=== PATIENT | female | born 1970 | race Caucasian/White ===

== ENCOUNTER 2019-06-02 15:16 | Emergency (ER) | payer BC, MEDICAID ==
--- NOTE | 2019-06-02 15:56 | EDM.PDOC ---
ED HPI GENERAL MEDICAL PROBLEM - General Chief Complaint: Chest Pain Stated Complaint: CHEST PAIN, NECK, TO THE SHOULDERS Time Seen by Provider: 06/02/19 15:55 Source of Information: Reports: Patient, RN, RN Notes Reviewed History Limitations: Reports: No Limitations - History of Present Illness INITIAL COMMENTS - FREE TEXT/NARRATIVE: Patient presents to ER with complaint of an excruciating chest pain that occurred about 11:00 this morning. The pain radiated up into the chest, into the neck and the shoulders. Patient states she rates the pain a 7-8/10 at the time of the pain. At the time the pain began patient was sitting at rest. Patient states she had had a granola bar and coffee for breakfast. Patient states the pain eventually subsided. She states she was able to eat lunch. Patient states she did talk to her primary care provider who told her to come to the ER. Patient states she is pain-free at this time. Patient is a smoker, denies any past cardiac history. Patient states her mother has atrial fib and CHF. Patient denies any recent strenuous activity, lifting, overexertion. Left Shoulder Pain Score (Numeric/FACES): 2 - Related Data Allergies Allergy/AdvReac Type Severity Reaction Status Date / Time morphine Allergy Itching Verified 06/02/19 15:29 tape Allergy Other Uncoded 06/02/19 15:29 Home Meds: Home Meds Black Cohosh Root [Menopause Support] 20 mg PO DAILY 06/02/19 [History] Magnesium 200 mg PO QID 06/02/19 [History] Past Medical History HEENT History: Reports: Impaired Vision Other HEENT History: wears glasses Cardiovascular History: Reports: None Respiratory History: Reports: None Genitourinary History: Reports: None EYELET ROW MARKER History: Reports: None Musculoskeletal History: Reports: None Neurological History: Reports: None Psychiatric History: Reports: None Endocrine/Metabolic History: Reports: Obesity/BMI 30+ Hematologic History: Reports: None Immunologic History: Reports: None Oncologic (Cancer) History: Reports: None Dermatologic History: Reports: None - Infectious Disease History Infectious Disease History: Reports: Chicken Pox - Past Surgical History Head Surgeries/Procedures: Reports: None HEENT Surgical History: Reports: Adenoidectomy, Myringotomy w Tube(s), Tonsillectomy GI Surgical History: Reports: Appendectomy, Cholecystectomy Female Surgical History: Reports: Section Other Female Surgeries/Procedures: x 4 Social & Family History - Tobacco Use Smoking Status *Q: Current Every Day Smoker Years of Tobacco use: 20 Packs/Tins Daily: 0.5 Second Hand Smoke Exposure: No - Caffeine Use Caffeine Use: Reports: Coffee - Recreational Drug Use Recreational Drug Use: No ED ROS GENERAL - Review of Systems Review Of Systems: Comprehensive ROS is negative, except as noted in HPI. ED EXAM, GENERAL - Physical Exam Exam: See Below Exam Limited By: No Limitations General Appearance: Alert, WD/WN Eye Exam: Bilateral Eye: EOMI, Normal Inspection Ears: Normal External Exam, Hearing Grossly Normal Nose: Normal Inspection Throat/Mouth: Normal Inspection, Normal Voice, No Airway Compromise Head: Atraumatic, Normocephalic Neck: Normal Inspection, Supple, Non-Tender, Full Range of Motion Respiratory/Chest: No Respiratory Distress, Lungs Clear, Normal Breath Sounds, No Accessory Muscle Use, Chest Non-Tender Cardiovascular: Normal Peripheral Pulses, Regular Rate, Rhythm, No Edema, No Gallop, No JVD, No Murmur, No Rub Peripheral Pulses: 2+: Radial (L), Radial (R) GI/Abdominal: Normal Bowel Sounds, Soft, Non-Tender, No Organomegaly, No Distention, No Abnormal Bruit, No Mass (Female) Exam: Deferred Rectal (Female) Exam: Deferred Back Exam: Normal Inspection, Full Range of Motion, NT Extremities: Normal Inspection, Normal Range of Motion, Non-Tender, Normal Capillary Refill, No Pedal Edema Neurological: Alert, Oriented, CN II-XII Intact, Normal Cognition, Normal Gait, Normal Reflexes, No Motor/Sensory Deficits Psychiatric: Normal Affect, Normal Mood Skin Exam: Warm, Dry, Intact, Normal Color, No Rash Lymphatic: No Adenopathy Course - Vital Signs Last Recorded V/S: Last Vital Signs Temp 99.3 F 06/02/19 15:23 Pulse 105 H 06/02/19 15:23 Resp 16 06/02/19 15:23 BP 155/79 H 06/02/19 15:23 Pulse Ox 99 06/02/19 15:23 - Orders/Labs/Meds Orders: Active Orders 24 hr Category Date Time Status EKG 12 Lead [EKG Documentation Completion] [RC] STAT Care 06/02/19 15:44 Active Labs: Laboratory Tests 06/02/19 06/02/19 Range/Units 16:15 16:15 WBC 6.7 (5.0-10.0) 10^3/uL RBC 4.11 L (4.2-5.4) 10^6/uL Hgb 13.8 (12.0-16.0) g/dL Hct 39.8 (37.0-47.0) % MCV 96.8 (80-100) fL MCH 33.6 (27.0-34.0) pg MCHC 34.7 (33.0-35.0) g/dL Plt Count 261 (150-450) 10^3/uL Neut % (Auto) 54.4 (42.2-75.2) % Lymph % (Auto) 33.4 (20.5-50.1) % [place] % (Auto) 9.6 H (2-8) % Eos % (Auto) 2.0 (1.0-3.0) % Baso % (Auto) 0.6 (0.0-1.0) % Sodium 141 (136-145) mmol/L Potassium 4.2 (3.5-5.1) mmol/L Chloride 105 (98-107) mmol/L Carbon Dioxide 25 (21-32) mmol/L Anion Gap 15.2 H (7-13) mEq/L BUN 17 (7-18) mg/dL Creatinine 0.84 (0.55-1.02) mg/dL Est Cr Clr Drug Dosing 86.53 mL/min Estimated GFR (MDRD) > 60 BUN/Creatinine Ratio 20.2 (No establ ref range) Glucose 106 H (74-99) mg/dL Calcium 8.5 (8.5-10.1) mg/dL Total Bilirubin 0.3 (0.2-1.0) mg/dL AST 25 (15-37) U/L ALT 20 (14-59) U/L Alkaline Phosphatase 52 (46-116) U/L Troponin I < 0.017 (0.000-0.056) ng/mL Total Protein 6.8 (6.4-8.2) g/dL Albumin 3.6 (3.4-5.0) g/dL Globulin 3.2 Albumin/Globulin Ratio 1.1 - Radiology Interpretation Free Text/Narrative:: Chest xray: FINDINGS: Lungs: Unremarkable. No consolidation. Pleural space: Unremarkable. No pleural effusion. No pneumothorax. Heart/Mediastinum: Unremarkable. No cardiomegaly. Bones/joints: Unremarkable. IMPRESSION: No acute findings. Thank you for allowing us to participate in the care of your patient. Dictated and Authenticated by: Irineo Brizuela MD 06/02/2019 4:28 PM Central Time ([place] & [place]) See rad report Departure - Departure Time of Disposition: 17:21 Disposition: Home, Self-Care 01 Reason for Transfer *Q: Other Condition: Good Clinical Impression: Chest pain at rest Instructions: Nonspecific Chest Pain, Adult, [id number] Referrals: Ale Pearson MD [Primary Care Provider] - Forms: ED Department Discharge Additional Instructions: Call Dr. Pearson on Wednesday to make an appointment Return to the ER with any further pain or problems Sepsis Event Note - Evaluation Sepsis Screening Result: No Definite Risk - Focused Exam Vital Signs: Vital Signs Temp Pulse Resp BP Pulse Ox 06/02/19 15:23 99.3 F 105 H 16 155/79 H 99 Date Exam was Performed: 06/02/19 Time Exam was Performed: 17:53 - My Orders Last 24 Hours: My Active Orders 06/02/19 15:44 EKG 12 Lead [EKG Documentation Completion] [RC] STAT - Assessment/Plan Last 24 Hours: My Active Orders 06/02/19 15:44 EKG 12 Lead [EKG Documentation Completion] [RC] STAT
[2019-06-02 16:44] LABS: ANION GAP 15.2 mEq/L (7-13); CHLORIDE,CL 105 mmol/L (98-107); SODIUM,NA 141 mmol/L (136-145)
== END 2019-06-02 17:30 | disposition home or self-care (01) ==
LOC: DL.ED 15:16
DX: R07.9 Chest pain, unspecified (principal); E66.9 Obesity, unspecified; Z68.41 Body mass index [BMI] 40.0-44.9, adult; Z88.5 Allergy status to narcotic agent; F17.210 Nicotine dependence, cigarettes, uncomplicated
CPT/HCPCS: 36415; 71045; 80053; 84484; 85025; 93005; 99285-25

== ENCOUNTER 2021-01-10 19:14 | Emergency (ER) | payer BC ==
[2021-01-10] MEDS ORDERED: Acetaminophen 500 MG Tab PO ONE (19:33)
--- NOTE | 2021-01-10 19:33 | EDM.PDOC ---
ED HPI GENERAL MEDICAL PROBLEM - General Chief Complaint: Lower Extremity Injury/Pain Stated Complaint: AMBULANCE Time Seen by Provider: 01/10/21 19:20 Source of Information: Reports: Patient, RN, RN Notes Reviewed History Limitations: Reports: No Limitations - History of Present Illness INITIAL COMMENTS - FREE TEXT/NARRATIVE: Anne is a 50 y/o female with a history of left knee ligament laxity who presents to the ED via [facility] with complaints of left lateral knee pain. The patient states approximately two hours ago she was checking her left toes with her left knee flexed and her lower leg resting onto her right leg when she suddenly felt a sharp pain to her left lateral knee. She attempted to stand on her knee and noted the joint felt unstable so she has been non-weight bearing to the extremity. She notes the pain is a 4/10 when the knee is flexed at 45 degrees, however it increased to an 8/10 when she straightens the knee. She denies recent falls or injury to the joint. The patient underwent a left knee MRI one year ago which revealed left knee ligament laxity. She has taken no medications or performed any supportive cares since experiencing the pain. Left Knee Pain Score (Numeric/FACES): 5 - Related Data Allergies Allergy/AdvReac Type Severity Reaction Status Date / Time morphine Allergy Itching Verified 06/02/19 15:29 tape Allergy Other Uncoded 06/02/19 15:29 Home Meds: Home Meds Black Cohosh Root [Menopause Support] 20 mg PO DAILY 06/02/19 [History] Magnesium 200 mg PO QID 06/02/19 [History] Past Medical History HEENT History: Reports: Impaired Vision Other HEENT History: wears glasses Cardiovascular History: Reports: None Respiratory History: Reports: None Genitourinary History: Reports: None WORK FROM HOME History: Reports: None Musculoskeletal History: Reports: None Neurological History: Reports: None Psychiatric History: Reports: None Endocrine/Metabolic History: Reports: Obesity/BMI 30+ Hematologic History: Reports: None Immunologic History: Reports: None Oncologic (Cancer) History: Reports: None Dermatologic History: Reports: None - Infectious Disease History Infectious Disease History: Reports: Chicken Pox - Past Surgical History Head Surgeries/Procedures: Reports: None HEENT Surgical History: Reports: Adenoidectomy, Myringotomy w Tube(s), Tonsillectomy GI Surgical History: Reports: Appendectomy, Cholecystectomy Female Surgical History: Reports: Section Other Female Surgeries/Procedures: x 4 Social & Family History - Tobacco Use Tobacco Use Status *Q: Current Every Day Tobacco User Years of Tobacco use: 10 Packs/Tins Daily: 0.7 - Caffeine Use Caffeine Use: Reports: Coffee Review of Systems - Review of Systems Review Of Systems: Comprehensive ROS is negative, except as noted in HPI. ED EXAM, GENERAL - Physical Exam Exam: See Below Exam Limited By: No Limitations General Appearance: Alert, No Apparent Distress Eye Exam: Bilateral Eye: EOMI, PERRL (3mm) Ears: Normal External Exam, Hearing Grossly Normal Nose: Normal Inspection Throat/Mouth: Normal Inspection, Normal Oropharynx, Normal Voice, No Airway Compromise Head: Atraumatic, Normocephalic Neck: Normal Inspection, Supple, Non-Tender, Full Range of Motion Respiratory/Chest: No Respiratory Distress, Lungs Clear, Chest Non-Tender Cardiovascular: Normal Peripheral Pulses, Regular Rate, Rhythm, No Edema, No Gallop, No JVD, No Murmur, No Rub Peripheral Pulses: 2+: Radial (L), Radial (R) GI/Abdominal: Normal Bowel Sounds, Soft, Non-Tender, No Distention, No Abnormal Bruit, No Mass, Pelvis Stable (Female) Exam: Deferred Rectal (Female) Exam: Deferred Back Exam: Normal Inspection, Full Range of Motion Extremities: Normal Capillary Refill, Leg Pain (To left lateral knee, increased with extension of the joint), Limited Range of Motion. No: Joint Swelling, Increased Warmth, Mottled, Pallor, Redness Neurological: Alert, Oriented, CN II-XII Intact, Normal Cognition, No Motor/Sensory Deficits, Abnormal Gait (Nonweight bearing to left lower extremity). No: Normal Gait Psychiatric: Normal Affect, Normal Mood Skin Exam: Warm, Dry, Intact, Normal Color, No Rash. No: Cyanosis, Jaundice, Mottled, Pallor Lymphatic: No Adenopathy Course - Vital Signs Last Recorded V/S: Last Vital Signs Temp 98.5 F 01/10/21 20:30 Pulse 98 01/10/21 20:30 Resp 20 01/10/21 20:30 BP 139/82 01/10/21 20:30 Pulse Ox 98 01/10/21 20:30 - Orders/Labs/Meds Orders: Active Orders 24 hr Category Date Time Status DME for Discharge [COMM] Stat Oth 01/10/21 19:46 Ordered Meds: Medications Discontinued Medications Generic Name Dose Route Start Last Admin Trade Name Anastacio PRN Reason Stop Dose Admin Acetaminophen 1,000 mg 01/10/21 19:33 01/10/21 19:40 Acetaminophen 500 Mg Tab PO 01/10/21 19:34 1,000 mg ONETIME ONE Administration - Re-Assessments/Exams Free Text/Narrative Re-Assessment/Exam: 01/10/21 Reviewed MRI read from January 12, 2020 via patient's [facility] which reveals ligament laxity of the left knee. Will not perform imaging today given lack of mechanism of injury. Findings of examination reviewed with patient. Patient instructed to follow up with primary care provider in 2-3 days regarding todays visit. Left knee wrapped with Trev Wrap and crutches provided given instability of left knee joint; patient instructed to obtain left knee brace that allows for flexion of the joint. Red flag signs and symptoms which would warrant immediate reevaluation reviewed. Patient verbalized understanding and agreement with the plan of care. Departure - Departure Time of Disposition: 20:30 Disposition: Home, Self-Care 01 Condition: Good Clinical Impression: Ligamentous laxity of left knee - Discharge Information *PRESCRIPTION DRUG MONITORING PROGRAM REVIEWED*: Not Applicable *COPY OF PRESCRIPTION DRUG MONITORING REPORT IN PATIENT GRADY: Not Applicable Referrals: PCP,None [Primary Care Provider] - Forms: ED Department Discharge Additional Instructions: 1.) Follow up with your primary care provider in 2-3 days regarding today's visit; you may require a repeat MRI of your left knee. 2.) Weight-bearing as tolerated, use crutches should you continue to experience instability in your knee joint. 3.) Obtain a stability brace that allows for flexion of the knee. You may keep the trev wrap in place until you obtain a brace. 4.) You may take ibuprofen (Advil/Motrin) 400-600mg every six hours, as pain and swelling persist. You may also take acetaminophen (Tylenol) 650-1000mg every six hours, as pain persists. You may stagger these medications so you are taking a dose of either every three hours. 5.) You may apply cold compresses to the area as pain and swelling persist, 20 minutes every hour. Sepsis Event Note (ED) - Evaluation Sepsis Screening Result: No Definite Risk - Focused Exam Vital Signs: Vital Signs Temp Pulse Resp BP Pulse Ox 01/10/21 20:30 98.5 F 98 20 139/82 98 01/10/21 19:21 98 F 105 H 18 156/89 H 98 - My Orders Last 24 Hours: My Active Orders 01/10/21 19:46 DME for Discharge [COMM] Stat - Assessment/Plan Last 24 Hours: My Active Orders 01/10/21 19:46 DME for Discharge [COMM] Stat
== END 2021-01-10 20:33 | disposition home or self-care (01) ==
LOC: DL.ED 19:14
DX: M23.8X2 Other internal derangements of left knee (principal); E66.9 Obesity, unspecified; Z68.31 Body mass index [BMI] 31.0-31.9, adult; Z72.0 Tobacco use; Z88.5 Allergy status to narcotic agent; Z91.09 Other allergy status, other than to drugs and biological substances; Z79.899 Other long term (current) drug therapy
CPT/HCPCS: 99283; A9270